=== PATIENT | female | born 1945 | race Caucasian/White ===

== ENCOUNTER 2019-08-04 10:36 | Outpatient (CLI) | payer MEDICARE, OTHER ==
--- NOTE | 2019-08-04 11:29 | MRI ---
MRI LUMBAR SPINE WITHOUT CONTRAST: HISTORY: Lumbar back pain. M54.16, lumbar radiculopathy. COMPARISON: None. FINDINGS: The aortic contour is nonaneurysmal. T2 hyperintense foci of both kidneys, likely cysts. Low grade bilateral symmetric paraspinal muscle atrophy. No marrow infiltrative process. The conus medullaris terminates near the mid L1 vertebral body. Modic type II and I endplate changes at L4-L5. Levels are as follows: L1-L2: Moderate degenerative disc space height loss. Circumferential disc bulge. Mild hypertrophic fa cet arthrosis. Mild bilateral neural foraminal narrowing. Mild effacement of the ventral CSF space with the spinal canal measuring approximately 8 mm. L2-L3: Advanced degenerative disc space height loss. Moderate hypertrophic facet arthropathy. Circumf erential disc osteophyte complex. Moderate left and moderate to severe right neural foraminal narrowing with abutment of the right exiting nerve root. Spinal canal is narrowed to approximately 6 mm. L3-L4: Mild degenerative disc space height loss. Large broad-based posterior disc bulge. Moderate hyp ertrophic facet arthropathy. Mild ligament flavum hypertrophy. Spinal canal is narrowed to approximately 4 mm with crowding of the nerve roots. There is impingement upon the exiting left nerve root and the right nerve root with abutment of both traversing nerve roots. L4-L5: There is 2 mm of anterolisthesis. Severe hypertrophic facet arthrosis. Large asymmetric left d isc osteophyte complex extending to the subforaminal extraforaminal zone. There is severe impingement upon the exiting left L4 nerve root. Moderate right-sided neural foraminal narrowing. Abu tment of the left traversing nerve root. L5-S1: Circumferential disc space height loss and disc bulge. Mild hypertrophic facet arthrosis. Mode rate bilateral neural foraminal narrowing. IMPRESSION: Moderate to severe spondylosis as described with multilevel nerve root impingement and spinal canal n arrowing. Transcribed Date/Time: 08/04/2019 12:07 PM
== END 2019-08-04 10:37 | disposition home or self-care (01) ==
LOC: TBSIIMAG 10:36
PROVIDERS: ATTEND Neurological Surgery
DX: M48.062 Spinal stenosis, lumbar region with neurogenic claudication (principal); M47.26 Other spondylosis with radiculopathy, lumbar region
CPT/HCPCS: 72148

== ENCOUNTER 2019-10-26 11:30 | Outpatient (CLI) | payer MEDICARE, OTHER | END 2019-10-26 11:31 | disposition home or self-care (01) | LOC: CTENTCT 11:30 | PROVIDERS: ATTEND Otolaryngology Plastic Surgery within the Head & Neck | DX: J32.9 Chronic sinusitis, unspecified (principal) | CPT/HCPCS: 70486 ==

== ENCOUNTER 2022-01-25 17:17 | Inpatient (IN) | payer MEDICARE, OTHER ==
[2022-01-25] MEDS ORDERED: Morphine 2 MG/ML VIAL SLOW IVP PRN (19:01)
[2022-01-25] MEDS ORDERED: hydrALAZINE 20 MG/ML VIAL SLOW IVP PRN (19:10)
[2022-01-25] MEDS ORDERED: Promethazine HCl 25 MG/ML VIAL IM PRN (19:10)
[2022-01-25] MEDS ORDERED: Ondansetron ODT 4 MG TAB SL PRN (19:15)
[2022-01-25] MEDS ORDERED: Ondansetron PF 4 MG/2 ML Vial IVP PRN (19:15)
[2022-01-25] MEDS ORDERED: traMADol HCl 50 MG TAB PO PRN (19:35)
[2022-01-25] MEDS ORDERED: Ibuprofen 200 MG TAB PO PRN (19:35)
[2022-01-25] MEDS ORDERED: Cyclobenzaprine 10 MG TAB PO PRN (19:35)
[2022-01-25] MEDS ORDERED: Acetaminophen 500 MG TAB PO SCH (20:00)
[2022-01-25 20:23] LABS: #Lymphocytes 1.1 thou/uL (1.20-3.40); #Monocytes 0.3 thou/uL (0.11-0.59); #Neutrophils 3.9 thou/uL (1.40-6.50); %Basophils 0.1 % (0.0-1.0); %Eosinophils 0.6 % (0.0-10.0); %Lymphocytes 19.9 % (21.0-51.0); %Neutrophils 73.5 % (42.0-75.0); Mean Corpuscular HGB CONC 34.9 g/dL (32.0-36.0); Mean Corpuscular Hemoglobin 34.6 pg (27.0-31.0); Mean Corpuscular Volume 99.3 fL (78.0-98.0); Mean Platelet Volume 8.6 fL (7.4-10.4); Platelet Count 108 thou/uL (130-400); RBC Distribution Width 12.5 % (11.5-14.5); Red Blood Cell (RBC) Count 3.76 mill/uL (4.20-5.40); White Blood Cell (WBC) Count 5.4 thou/uL (4.8-10.8)
[2022-01-25 20:25] LABS: Anion Gap 12 mmol/L (10-20); BUN (Urea Nitrogen) 13 mg/dL (9.8-20.1); Calc. Creatinine Clearance 0 mL/min (70-130); Calcium 9.1 mg/dL (7.8-10.44); Carbon Dioxide 26 mmol/L (23-31); Chloride 101 mmol/L (98-107); Glucose 180 mg/dL (83-110); Magnesium 1.6 mg/dL (1.6-2.6); Phosphorus 3.2 mg/dL (2.3-4.7); Potassium 3.9 mmol/L (3.5-5.1); Sodium 135 mmol/L (136-145)
[2022-01-25 20:28] LABS: INR-International Normal Ratio 0.9; Prothrombin Time 12.6 sec (12.0-14.7)
[2022-01-25] MEDS: Senokot S 8.6-50 MG TAB PO SCH (22:34)
[2022-01-25] MEDS: Famotidine 20 MG TAB PO SCH (22:35)
[2022-01-25] MEDS: Sodium Chloride 0.9% 1,000 ML IV SCH (22:35)
[2022-01-25 23:10] VITALS: BMI 41.8
[2022-01-25] MEDS: Acetaminophen 500 MG TAB PO SCH (23:50)
[2022-01-26] MEDS: Sodium Chloride 0.9% 1,000 ML IV SCH (05:00)
[2022-01-26] MEDS: Acetaminophen 500 MG TAB PO SCH ×2 (06:22→12:10)
[2022-01-26] MEDS ORDERED: Azelastine 137 MCG/Spray 30 ML NS PRN (07:29)
[2022-01-26] MEDS: Famotidine 20 MG TAB PO SCH (08:47)
[2022-01-26] MEDS: Senokot S 8.6-50 MG TAB PO SCH (08:48)
[2022-01-26] MEDS ORDERED: Lisinopril 20 MG TAB PO SCH (09:00)
[2022-01-26] MEDS ORDERED: PONATINIB PO SCH (09:00)
[2022-01-26] MEDS ORDERED: Polyethylene Glycol 3350 17 GM Packet PO SCH (09:00)
[2022-01-26 12:38] VITALS: BP 148/75; TEMP 98.1
[2022-01-26] MEDS ORDERED: Mometasone 200 MCG/Formoterol 5 MCG 120 PUFF INHALER INH SCH (18:30)
[2022-01-26] MEDS ORDERED: Montelukast Sodium 10 mg Tablet PO SCH (21:00)
== END 2022-01-26 15:42 | disposition home or self-care (01) | DRG 556 ==
LOC: SJJU 18:52
PROVIDERS: ADMIT Student in an Organized Health Care Education/Training Program; ATTEND Surgery
DX: M25.551 Pain in right hip (principal); C95.91 Leukemia, unspecified, in remission; Z23 Encounter for immunization; Z20.822 Contact with and (suspected) exposure to COVID-19; W18.30XA Fall on same level, unspecified, initial encounter; I10 Essential (primary) hypertension; Z79.899 Other long term (current) drug therapy; Z88.1 Allergy status to other antibiotic agents; Z88.8 Allergy status to other drugs, medicaments and biological substances
CPT/HCPCS: 36415; 83735; 84100; 85610; 85730; 86850; 86900; 86901; 93005; 93010; J7050; U0003; U0005